=== PATIENT | female | born 1945 | race African-American/Black ===

== ENCOUNTER 2017-02-17 15:16 | Emergency (ER) | payer OTHER ==
[~2017-02-17] VITALS: Ht 170.2 cm; Wt 89.8 kg
[~2017-02-17 15:16] MED LIST: ASPI81TA2 PO; ESTR1.25 PO; HYDR25TA4 PO; LISI40TA4 PO; NIFE-2 PO; PRAV20TA59 PO; SULF1TAB48 PO
[2017-02-17 15:25] VITALS: BP_SYST 132
[2017-02-17 18:26] VITALS: BP_SYST 128
== END 2017-02-17 18:26 | disposition home or self-care (01) ==
LOC: SED 15:16
DX: S92.511A Displaced fracture of proximal phalanx of right lesser toe(s), initial encounter for closed fracture (principal); Z88.0 Allergy status to penicillin; Z88.2 Allergy status to sulfonamides; I10 Essential (primary) hypertension; W22.8XXA Striking against or struck by other objects, initial encounter; Y93.89 Activity, other specified; Y92.89 Other specified places as the place of occurrence of the external cause; Y99.8 Other external cause status
CPT/HCPCS: 99284

== ENCOUNTER 2018-11-27 14:51 | Inpatient (IN) | payer OTHER ==
[~2018-11-27] VITALS: Ht 170.2 cm; Wt 81.2 kg
[2018-11-27 14:51] VITALS: BP_SYST 124
[~2018-11-27 14:51] MED LIST changes: +ASPI-1155 PO; -ASPI81TA2 PO
[2018-11-27] MEDS ORDERED: NOR10 PO (15:01)
[2018-11-27] MEDS ORDERED: MULT-1159 PO (15:01)
[2018-11-27] MEDS ORDERED: VITD2000 PO (15:01)
[2018-11-27] MEDS ORDERED: LIP20 PO (15:01)
[2018-11-27] MEDS ORDERED: LISI40TA4 PO (15:01)
[2018-11-27 15:28] LABS: BASOPHILS % (AUTO) 0.3 % (0.0-2.0); EOSINOPHILS % (AUTO) 0.4 % (0.0-4.0); HEMATOCRIT 37.7 % (36-48); LYMPHOCYTES # (AUTO) 1.9 K/uL (1.0-5.5); LYMPHOCYTES % (AUTO) 21.9 % (20.5-51.5); MEAN CORPUSCULAR HEMOGLOBIN 26 pg (27-31); MEAN CORPUSCULAR HGB CONC 32 % (32-36); MEAN CORPUSCULAR VOLUME 83 fL (79.0-98.0); MONOCYTES # (AUTO) 0.7 K/uL (0.0-1.0); MONOCYTES % (AUTO) 8.5 % (1.7-9.3); NEUTROPHILS # (AUTO) 5.9 K/uL (1.8-7.7); NEUTROPHILS % (AUTO) 68.9 % (40.0-70.0); PLATELET COUNT (AUTO) 156 K/uL (130-430); RED BLOOD CELL COUNT(AUTO) 4.55 MIL/uL (4.2-6.2); RED CELL DISTRIBUTION WIDTH 15.1 % (9.0-15.0); WHITE BLOOD COUNT (AUTO) 8.6 K/uL (4.8-10.8)
[2018-11-27 15:41] LABS: ANION GAP 8 (5-15); CALCIUM 10.5 mg/dL (8.4-11.0); CHLORIDE 103 mmol/L (98-107); CREATININE 1.32 mg/dL (0.55-1.30); GLUCOSE 123 mg/dL (70-99); SODIUM SERUM 138 mmol/L (136-145); UREA NITROGEN, BLOOD 22 mg/dL (8-21)
[2018-11-27 15:45] LABS: PROTHROMBIN TIME 10.4 SECS (9.5-12.5)
[2018-11-27 15:46] LABS: ALANINE AMINOTRANSFERASE 51 U/L (12-78); ALBUMIN 3.7 g/dL (3.4-4.8); ASPARTATE AMINOTRANSFERASE 33 U/L (10-37); TOTAL BILIRUBIN 0.9 mg/dL (0.0-1.0)
[2018-11-27] MEDS ORDERED: ASPIRIN 81 MG TAB.CHEW PO ONE (16:00)
[2018-11-27] MEDS ORDERED: NITROGLYCERIN 0.4 MG TAB.SUBL SL PRN (16:30)
[2018-11-27 16:35] LABS: BILIRUBIN,URINE NEGATIVE (NEGATIVE); BLOOD, URINE TRACE (NEGATIVE); CLARITY/URINE SL CLOUDY (CLEAR); COLOR,URINE YELLOW (YELLOW); GLUCOSE,URINE NEGATIVE (NEGATIVE); KETONES,URINE TRACE (NEGATIVE); LEUKOCYTE ESTERASE ,URINE 1+ (NEGATIVE); NITRITE, URINE NEGATIVE (NEGATIVE); PH,URINE 5.5 (5.0-8.0); PROTEIN URINE 3+ (NEGATIVE); UROBILINOGEN,URINE 0.2 (0.2-1.0)
[2018-11-27 16:38] LABS: BACTERIA,URINE MODERATE /HPF (None Seen); WBC,URINE 20-50 /HPF (0-3)
[2018-11-27 20:15] VITALS: BP_SYST 167
[2018-11-27] MEDS ORDERED: ACETAMINOPHEN 325 MG TABLET PO PRN (21:45)
[2018-11-28 00:12] VITALS: BP_SYST 169
[2018-11-28 07:55] VITALS: BP_SYST 162
[2018-11-28] MEDS: ATORVASTATIN 20 MG TABLET PO SCH (08:37)
[2018-11-28] MEDS: LISINOPRIL 20 MG TABLET PO SCH (08:38)
[2018-11-28] MEDS: amLODIPine BESYLATE 10 MG TABLET PO SCH (08:38)
[2018-11-28 12:00] VITALS: BP_SYST 156
[2018-11-28 16:11] VITALS: BP_SYST 177
[2018-11-28 16:32] VITALS: BP_SYST 157
[2018-11-28 20:15] VITALS: BP_SYST 163
[2018-11-28] MEDS ORDERED: cloNIDine HCL 0.1 MG TABLET PO PRN (21:15)
[2018-11-28] MEDS: guaiFENesin 200 MG/10 ML UDC PO PRN (21:59)
[2018-11-29 00:12] VITALS: BP_SYST 142
[2018-11-29 08:00] VITALS: BP_SYST 138
[2018-11-29] MEDS: ATORVASTATIN 20 MG TABLET PO SCH (09:12)
[2018-11-29] MEDS: amLODIPine BESYLATE 10 MG TABLET PO SCH (09:12)
[2018-11-29] MEDS: guaiFENesin 200 MG/10 ML UDC PO PRN (09:12)
[2018-11-29] MEDS: LISINOPRIL 20 MG TABLET PO SCH (09:13)
[2018-11-29 10:00] VITALS: BP_SYST 132
[2018-11-29 10:45] VITALS: BP_SYST 132
== END 2018-11-29 11:50 | disposition home or self-care (01) | DRG 282 ==
LOC: SED 14:51 → STU 16:08
PROVIDERS: ADMIT Internal Medicine Hospice and Palliative Medicine; ATTEND Internal Medicine Hospice and Palliative Medicine
DX: I21.A1 Myocardial infarction type 2 (principal); I24.9 Acute ischemic heart disease, unspecified; E78.5 Hyperlipidemia, unspecified; I10 Essential (primary) hypertension; Z90.49 Acquired absence of other specified parts of digestive tract; Z90.710 Acquired absence of both cervix and uterus; Z88.0 Allergy status to penicillin; Z88.2 Allergy status to sulfonamides; Z79.899 Other long term (current) drug therapy
CPT/HCPCS: 36415; 70450-TC; 71045; 80053; 81000-TC; 84484; 85025; 85610-TC; 85730-TC; 87086; 87186-TC; 93005; 93306; 99285; G0378; J7030

== ENCOUNTER 2023-03-28 06:10 | Emergency (ER) | payer OTHER ==
[~2023-03-28] VITALS: Ht 170.2 cm; Wt 81.2 kg
[~2023-03-28 06:10] MED LIST changes: -ASPI-1155 PO; +CARV25TA55 PO; -ESTR1.25 PO; -HYDR25TA4 PO; +LIP20 PO; +LISI40TA13 PO; -LISI40TA4 PO; +MULT-1159 PO; -NIFE-2 PO; +NOR10 PO; -PRAV20TA59 PO; -SULF1TAB48 PO; +VITD2000 PO
[2023-03-28 06:25] VITALS: BP_SYST 132; PULSE 67; RESP 16; TEMP 97.6; O2SAT 98
[2023-03-28] MEDS ORDERED: DIPH25CA83 PO (07:24)
[2023-03-28] MEDS ORDERED: CLIN-22 PO (07:24)
[2023-03-28] MEDS ORDERED: NEOM28.37 TP (07:24)
[2023-03-28 07:51] VITALS: BP_SYST 132; PULSE 79; RESP 20; TEMP 97.9; O2SAT 99
== END 2023-03-28 07:54 | disposition home or self-care (01) ==
LOC: SED 06:10
DX: L03.115 Cellulitis of right lower limb (principal); M79.89 Other specified soft tissue disorders; I10 Essential (primary) hypertension; E78.5 Hyperlipidemia, unspecified; Z88.0 Allergy status to penicillin; Z88.2 Allergy status to sulfonamides; Z79.899 Other long term (current) drug therapy
CPT/HCPCS: 99283